=== PATIENT | female | born 1960 | race Caucasian/White ===

== ENCOUNTER 2019-03-01 16:08 | Emergency (ER) | payer BC ==
[~2019-03-01] VITALS: Ht 170.2 cm; Wt 75.3 kg
[~2019-03-01 16:08] MED LIST: FLEXERIL PO; NAPROXEN 500MG500 M1 PO; PERCOCET 5-3251 EACH PO
[2019-03-01] MEDS ORDERED: CLEOCIN HCL150 MG PO (16:24)
[2019-03-01 17:17] VITALS: BP 138/100
== END 2019-03-01 17:19 | disposition home or self-care (01) ==
LOC: M.ERS 16:08
DX: S71.112D Laceration without foreign body, left thigh, subsequent encounter (principal); L08.9 Local infection of the skin and subcutaneous tissue, unspecified; I10 Essential (primary) hypertension; Z88.5 Allergy status to narcotic agent; Z90.49 Acquired absence of other specified parts of digestive tract; Z98.890 Other specified postprocedural states; Z90.11 Acquired absence of right breast and nipple; Z85.820 Personal history of malignant melanoma of skin; X58.XXXD Exposure to other specified factors, subsequent encounter